=== PATIENT | male | born 1985 | race Caucasian/White ===

== ENCOUNTER → 2020-01-14 14:26 | Outpatient (BNVA) | payer OTHER, SELFPAY | PROVIDERS: Visit Provider Nurse Practitioner Family | DX: D22.9 Melanocytic nevi, unspecified (principal); L81.9 Disorder of pigmentation, unspecified | CPT/HCPCS: 88304 ==

== ENCOUNTER → 2021-09-13 09:37 | Outpatient (BNVA) | payer OTHER, SELFPAY | PROVIDERS: Visit Provider Nurse Practitioner Family | DX: R53.83 Other fatigue (principal); R68.82 Decreased libido; Z80.8 Family history of malignant neoplasm of other organs or systems; I10 Essential (primary) hypertension; E78.5 Hyperlipidemia, unspecified; Z13.1 Encounter for screening for diabetes mellitus; Z13.6 Encounter for screening for cardiovascular disorders | CPT/HCPCS: 80053; 80061; 84403; 84436; 84443; 84481 ==

== ENCOUNTER → 2021-10-18 10:24 | Outpatient (BNVA) | payer OTHER, SELFPAY | PROVIDERS: Visit Provider Nurse Practitioner Family | DX: E29.1 Testicular hypofunction (principal) | CPT/HCPCS: 82728; 83001; 83002; 83550; 84402; 84403 ==

== ENCOUNTER → 2022-09-17 08:39 | Outpatient (BNVA) | payer OTHER, SELFPAY | PROVIDERS: PCP Family Medicine; Visit Provider Family Medicine | DX: E29.1 Testicular hypofunction (principal); I10 Essential (primary) hypertension | CPT/HCPCS: 80053; 80061; 84403; 85025; G0103 ==

== ENCOUNTER → 2023-11-19 09:24 | Outpatient (BNVA) | payer OTHER, SELFPAY | PROVIDERS: PCP Family Medicine; Visit Provider Family Medicine | DX: I10 Essential (primary) hypertension (principal); E78.2 Mixed hyperlipidemia; K21.9 Gastro-esophageal reflux disease without esophagitis; J45.909 Unspecified asthma, uncomplicated; R79.89 Other specified abnormal findings of blood chemistry | CPT/HCPCS: 80053; 80061; 85025 ==